=== PATIENT | female | born 1985 | race Caucasian/White ===

== ENCOUNTER → 2019-12-26 15:35 | Outpatient (BNVA) | payer SELFPAY | PROVIDERS: Family Provider Family Medicine; Visit Provider Nurse Practitioner Family | DX: Z30.8 Encounter for other contraceptive management (principal) | CPT/HCPCS: 81025 ==

== ENCOUNTER 2020-06-17 07:59 | Outpatient (CLI) | payer SELFPAY ==
--- NOTE | 2020-06-17 08:45 | US_ITS ---
WS: [id number] RIGHT UPPER QUADRANT ULTRASOUND HISTORY: ruq tenderness COMPARISON: None available. Liver: 13.0 cm in length. Normal size and echogenicity with no intrahepatic dilatation. No mass. Gallbladder: Normally distended gallbladder with no stones or wall thickening. CBD: 0.4 cm Pancreas: Normal size and echogenicity. Right kidney: 10.0 cm in length. Normal echogenicity with no mass or hydronephrosis. Aorta and IVC: Unremarkable. No ascites. US/US gall bladder [id number] IMPRESSION: Normal RIGHT upper quadrant ultrasound.
== END 2020-06-17 08:00 | disposition home or self-care (01) ==
LOC: US 08:01
PROVIDERS: PCP Nurse Practitioner Family; Visit Provider Nurse Practitioner Family
DX: R10.11 Right upper quadrant pain (principal)
CPT/HCPCS: 76705

== ENCOUNTER → 2021-04-22 15:59 | Outpatient (BNVA) | payer SELFPAY | PROVIDERS: PCP Nurse Practitioner Family; Visit Provider Nurse Practitioner Family | DX: N91.2 Amenorrhea, unspecified (principal); Z30.9 Encounter for contraceptive management, unspecified | CPT/HCPCS: 81025 ==